=== PATIENT | female | born 1950 | race Caucasian/White ===

== ENCOUNTER 2017-03-12 15:21 | Inpatient (IN) | payer OTHER ==
[~2017-03-12] VITALS: Ht 162.6 cm; Wt 57.8 kg
[~2017-03-12 15:21] MED LIST: ACTOS30 MG PO; ADVAIR 250/501 DISK IH; ALBUTEROL17 GM IH; AMBIEN CR6.25 MG PO; AMLODIPINE BESYL5 MG PO; ASPIRIN325 MG PO; ATROVENT HFA12.9 GM IH; Ambien PO; CEFTIN500 MG PO; CILOSTAZOL50 MG PO; CLONIDINE HCL0.1 MG PO; CRESTOR10 MG PO; CRESTOR40 MG PO; CRESTOR5 MG PO; CYMBALTA20 MG PO; Cymbalta PO; ESCITALOPRAM OX10 MG PO; FERROUS SULFAT325 MG PO; Feosol PO; GABAPENTIN400 MG PO; GABAPENTIN600 MG PO; JANUMET 50/11 TABLET PO; JANUMET 50/51 TABLET PO; K-DUR10 MEQ PO; LANTUS100 UNIT/1 SQ; LASIX20 MG PO; LEVEMIR FL100 UNIT/1 SC; LEVOTHYROXINE88 MCG PO; LISINOPRIL20 MG PO; LOPRESSOR25 MG PO; LOPRESSOR50 MG PO; Levothroid,Synthroid PO; MEDROL DOSEPAK4 MG PO; METFORMIN HCL1000 MG PO; MORPHINE SULFAT15 M1 PO; MULTI-DAY VITA1 EACH PO; NICOTINE PATCH1 EAC2 TD; NOVOLOG100 UNIT/3 SQ; Norvasc PO; OXAYDO7.5 MG PO; OXYCODONE-ACET1 EACH PO; OXYCODONE-APAP1 EAC6 PO; PERCOCET 5/31 TABLET PO; PLAVIX75 MG PO; POTASSIUM CHLO10 ME3 PO; POTASSIUM-9999 MG PO; PREVACID30 MG PO; PROTONIX40 MG PO; Proventil,Ventolin H IH; SPIRIVA RESPIMAT4 GM IH; SPIRIVA1 INHALATI IH; SYMBICORT60 INHALA1 IH; SYNTHROID88 MCG PO; TICLID PO; Tylenol Regular Stre PO; VENTOLIN HFA18 GM IH; Vicodin,Lortab 5/500 PO; ZESTRIL,PRINIVI20 MG PO; Zestril,Prinivil PO
[2017-03-12] MEDS ORDERED: ASPIRIN325 MG PO (15:45)
[2017-03-12 18:16] LABS: HEMATOCRIT 37.6 % (36.0-46.0); MCH 27.3 PG (29.0-34.0); MCHC 31.9 G/DL (30.0-36.0); MCV 85.5 FL (83-99); MEAN PLAT.VOLUME 9.8 uM^3 (9.5-12.4); PLATELET COUNT 374 K/uL (156-360); RBC DIS.WIDTH-CV 17.7 % (11.8-14.6); RBC DIS.WIDTH-SD 55.3 % (39-53); WHITE BLOOD COUNT 13.1 K/uL (4.1-10.2)
[2017-03-12 18:44] LABS: ALKALINE PHOSPHATASE 54 IU/L (3-129); ANION GAP 7 MEQ/L (2-14); CHLORIDE 98 MEQ/L (99-109); GFR ESTIMATE (CALCULATED) > 59 mL/min/; GLUCOSE 193 mg/dL (70-99); POTASSIUM 3.6 MEQ/L (3.7-5.4); SAMPLE HEMOLYSIS CHECK 0; SAMPLE ICTERIC CHECK 0; SAMPLE LIPEMIA CHECK 0; SODIUM 139 MEQ/L (136-147); TOTAL BILIRUBIN 0.3 MG/DL (0.0-1.0); UREA NITROGEN (BUN) 14 mg/dL (9-23)
[2017-03-12 21:35] LABS: MAGNESIUM 1.4 mg/dl (1.3-2.7)
[2017-03-12] MEDS ORDERED: LEXAPRO20 MG PO (21:41)
[2017-03-12] MEDS ORDERED: BREO ELLIPTA I1 EACH IH (21:44)
[2017-03-12 21:53] LABS: SERUM ETHYL ALCOHOL < 10 mg/dL
[2017-03-12 22:02] LABS: ADD MIUA? YES; BILIRUBIN NEGATIVE; BLOOD NEGATIVE; COLOR YELLOW ((YELLOW)); GLUCOSE (STRIP) NEGATIVE; KETONES NEGATIVE; LEUKOCYTES NEGATIVE; NITRITE NEGATIVE; PROTEIN (STRIP) 30; SPECIFIC GRAVITY 1.009 (1.000-1.030); UROBILINOGEN 0.2 MG/DL (0.2-1.0)
[2017-03-12 22:05] VITALS: BP 174/72
[2017-03-12 22:12] LABS: BACTERIA 2+ /HPF; EPITHELIAL CELLS RARE /HPF; MUCUS TRACE /LPF; RED BLOOD CELLS 0-5 /HPF (0-5); UCUL ADDED? YES
[2017-03-12 22:40] VITALS: BP 174/72
[2017-03-12 22:46] LABS: TROP-I INTERPRETATION NEGATIVE; TROPONIN-I < 0.01 ng/mL (0.0-0.30)
[2017-03-12 23:18] LABS: POINT-OF-CARE METER ID UU14208753
[2017-03-13 01:18] LABS: TROP-I INTERPRETATION NEGATIVE; TROPONIN-I < 0.01 ng/mL (0.0-0.30)
[2017-03-13 04:34] VITALS: BP 174/83
[2017-03-13 06:25] LABS: POINT-OF-CARE METER ID UU14117124
[2017-03-13 07:06] LABS: INTER. NORMALIZED RATIO 1.1; PROTHROMBIN TIME 11.7 SEC (10.2-12.9)
[2017-03-13 07:09] LABS: PTT 27.3 SEC (25-37)
[2017-03-13 07:16] LABS: ANION GAP 8 MEQ/L (2-14); CHLORIDE 99 MEQ/L (99-109); GFR ESTIMATE (CALCULATED) > 59 mL/min/; GLUCOSE 146 mg/dL (70-99); HDL CHOLESTEROL 52 MG/DL (Desirable>=50); LDL CHOLESTEROL 65 mg/dL (Desirable<100); NON-HDL CHOLESTEROL 81 mg/dL (Desirable<160); SAMPLE HEMOLYSIS CHECK 1; SAMPLE ICTERIC CHECK 0; SAMPLE LIPEMIA CHECK 0; SODIUM 138 MEQ/L (136-147); TOTAL CHOLESTEROL 133 mg/dL (Desirable<200); TRIGLYCERIDES 81 MG/DL (Normal: <150); UREA NITROGEN (BUN) 13 mg/dL (9-23)
[2017-03-13 07:18] LABS: POTASSIUM 5.1 MEQ/L (3.7-5.4); TROP-I INTERPRETATION NEGATIVE; TROPONIN-I 0.02 ng/mL (0.0-0.30)
[2017-03-13 07:19] LABS: Estimated Average Glucose 151 mg/dL (70-123); HEMOGLOBIN A1c (GLYCOHEMOGLOB) 6.9 % HGB (Below 5.7)
[2017-03-13 07:42] VITALS: BP 132/66
[2017-03-13 08:17] LABS: BASOPHIL COUNT 0.1 K/uL (0-0.1); EOSINOPHIL (%) 0.6 % (0-5); EOSINOPHIL COUNT 0.1 K/uL (0-0.3); HEMATOCRIT 34.2 % (36.0-46.0); IMMATURE GRANULOCYTE (%) 0.3 % (0.0-0.7); INSTRUMENT ABS NEUTROPHIL CT 8.8 K/uL; LYMPHOCYTE COUNT 1.5 K/uL (1.0-2.8); MCH 26.9 PG (29.0-34.0); MCHC 31.3 G/DL (30.0-36.0); MCV 85.9 FL (83-99); MEAN PLAT.VOLUME 10.1 uM^3 (9.5-12.4); MONOCYTE (%) 8.6 % (3-12); NEUTROPHIL (%) 76.8 % (45-76); NEUTROPHIL COUNT 8.8 K/uL (1.8-6.4); PLATELET COUNT 336 K/uL (156-360); RBC DIS.WIDTH-CV 17.6 % (11.8-14.6); RBC DIS.WIDTH-SD 55.2 % (39-53); RED BLOOD COUNT 3.98 M/uL (3.80-5.20); WHITE BLOOD COUNT 11.4 K/uL (4.1-10.2)
[2017-03-13 11:20] VITALS: BP 140/87
[2017-03-13 11:37] LABS: POINT-OF-CARE METER ID UU14208753
[2017-03-13 16:08] VITALS: BP 175/77
[2017-03-13 18:37] LABS: POINT-OF-CARE METER ID UU13113675
[2017-03-13 19:08] LABS: HEMATOCRIT 36.9 % (36.0-46.0); MCH 28.6 PG (29.0-34.0); MCHC 32.5 G/DL (30.0-36.0); MCV 87.9 FL (83-99); MEAN PLAT.VOLUME 9.9 uM^3 (9.5-12.4); PLATELET COUNT 302 K/uL (156-360); RBC DIS.WIDTH-CV 17.9 % (11.8-14.6); RBC DIS.WIDTH-SD 57.5 % (39-53); WHITE BLOOD COUNT 11.5 K/uL (4.1-10.2)
[2017-03-13 20:21] VITALS: BP 169/75
[2017-03-13 21:46] LABS: POINT-OF-CARE METER ID UU14208753
[2017-03-13 23:15] VITALS: BP 143/83
[2017-03-14 04:04] VITALS: BP 146/75
[2017-03-14 05:56] LABS: BASOPHIL COUNT 0.1 K/uL (0-0.1); EOSINOPHIL (%) 0.1 % (0-5); HEMATOCRIT 32.1 % (36.0-46.0); IMMATURE GRANULOCYTE (%) 0.4 % (0.0-0.7); IMMATURE GRANULOCYTE COUNT 0.1 K/uL; INSTRUMENT ABS NEUTROPHIL CT 9.4 K/uL; MCH 27.9 PG (29.0-34.0); MCHC 32.1 G/DL (30.0-36.0); MEAN PLAT.VOLUME 10.4 uM^3 (9.5-12.4); MONOCYTE COUNT 0.7 K/uL (0-0.8); NEUTROPHIL (%) 84.5 % (45-76); NEUTROPHIL COUNT 9.4 K/uL (1.8-6.4); PLATELET COUNT 290 K/uL (156-360); RBC DIS.WIDTH-CV 17.4 % (11.8-14.6); RBC DIS.WIDTH-SD 55.5 % (39-53); RED BLOOD COUNT 3.69 M/uL (3.80-5.20); WHITE BLOOD COUNT 11.2 K/uL (4.1-10.2)
[2017-03-14 06:22] LABS: ANION GAP 7 MEQ/L (2-14); CHLORIDE 99 MEQ/L (99-109); GFR ESTIMATE (CALCULATED) > 59 mL/min/; GLUCOSE 132 mg/dL (70-99); POTASSIUM 4.3 MEQ/L (3.7-5.4); SAMPLE HEMOLYSIS CHECK 0; SAMPLE ICTERIC CHECK 0; SAMPLE LIPEMIA CHECK 0; SODIUM 137 MEQ/L (136-147); UREA NITROGEN (BUN) 11 mg/dL (9-23)
[2017-03-14 06:34] LABS: POINT-OF-CARE METER ID UU14117124
[2017-03-14 06:38] LABS: TROP-I INTERPRETATION NEGATIVE; TROPONIN-I 0.01 ng/mL (0.0-0.30)
[2017-03-14 08:43] VITALS: BP 160/72
[2017-03-14 11:38] LABS: POINT-OF-CARE METER ID UU14208753
[2017-03-14 11:53] VITALS: BP 143/66
[2017-03-14 16:10] VITALS: BP 137/63
[2017-03-14 19:28] VITALS: BP 155/65
[2017-03-14 23:00] VITALS: BP 121/58
[2017-03-15] VITALS (11 sets, daily range): BP systolic 111–167; BP diastolic 54–71
[2017-03-15 06:43] LABS: POINT-OF-CARE METER ID UU14117124
[2017-03-15 07:14] LABS: EOSINOPHIL COUNT 0.1 K/uL (0-0.3); HEMATOCRIT 26.2 % (36.0-46.0); IMMATURE GRANULOCYTE (%) 0.5 % (0.0-0.7); INSTRUMENT ABS NEUTROPHIL CT 6.4 K/uL; LYMPHOCYTE COUNT 0.9 K/uL (1.0-2.8); MCH 26.6 PG (29.0-34.0); MCHC 30.9 G/DL (30.0-36.0); MCV 85.9 FL (83-99); MEAN PLAT.VOLUME 10.4 uM^3 (9.5-12.4); MONOCYTE (%) 8.1 % (3-12); MONOCYTE COUNT 0.7 K/uL (0-0.8); NEUTROPHIL (%) 78.5 % (45-76); NEUTROPHIL COUNT 6.4 K/uL (1.8-6.4); PLATELET COUNT 258 K/uL (156-360); RBC DIS.WIDTH-CV 17.2 % (11.8-14.6); RBC DIS.WIDTH-SD 54.8 % (39-53); RED BLOOD COUNT 3.05 M/uL (3.80-5.20); WHITE BLOOD COUNT 8.2 K/uL (4.1-10.2)
[2017-03-15 07:30] LABS: ANION GAP 8 MEQ/L (2-14); CHLORIDE 96 MEQ/L (99-109); GFR ESTIMATE (CALCULATED) > 59 mL/min/; GLUCOSE 197 mg/dL (70-99); POTASSIUM 3.5 MEQ/L (3.7-5.4); SAMPLE HEMOLYSIS CHECK 0; SAMPLE ICTERIC CHECK 0; SAMPLE LIPEMIA CHECK 0; SODIUM 135 MEQ/L (136-147); UREA NITROGEN (BUN) 13 mg/dL (9-23)
[2017-03-15 13:40] LABS: ADD MIUA? YES; BILIRUBIN NEGATIVE; BLOOD NEGATIVE; COLOR YELLOW ((YELLOW)); GLUCOSE (STRIP) 50; KETONES NEGATIVE; LEUKOCYTES TRACE; NITRITE NEGATIVE; PROTEIN (STRIP) 100; SPECIFIC GRAVITY 1.017 (1.000-1.030); UROBILINOGEN 0.2 MG/DL (0.2-1.0)
[2017-03-15 14:06] LABS: BACTERIA RARE /HPF; EPITHELIAL CELLS NONE SEEN /HPF; GRANULAR CASTS 0-5 /LPF; HYALINE CASTS 0-5 /LPF; MUCUS TRACE /LPF; RED BLOOD CELLS 0-5 /HPF (0-5); UCUL ADDED? YES
[2017-03-15 21:35] LABS: POINT-OF-CARE METER ID UU14208753
[2017-03-16 04:09] VITALS: BP 113/75
[2017-03-16 06:26] LABS: POINT-OF-CARE METER ID UU14208753
[2017-03-16 06:35] LABS: BASOPHIL COUNT 0.1 K/uL (0-0.1); EOSINOPHIL COUNT 0.2 K/uL (0-0.3); HEMATOCRIT 30.4 % (36.0-46.0); IMMATURE GRANULOCYTE (%) 0.4 % (0.0-0.7); INSTRUMENT ABS NEUTROPHIL CT 6.3 K/uL; MCH 27.5 PG (29.0-34.0); MCHC 32.2 G/DL (30.0-36.0); MCV 85.4 FL (83-99); MEAN PLAT.VOLUME 10.5 uM^3 (9.5-12.4); MONOCYTE COUNT 0.8 K/uL (0-0.8); NEUTROPHIL (%) 75.6 % (45-76); NEUTROPHIL COUNT 6.3 K/uL (1.8-6.4); PLATELET COUNT 266 K/uL (156-360); RBC DIS.WIDTH-SD 50.4 % (39-53); RED BLOOD COUNT 3.56 M/uL (3.80-5.20); WHITE BLOOD COUNT 8.4 K/uL (4.1-10.2)
[2017-03-16 07:04] LABS: ALKALINE PHOSPHATASE 66 IU/L (3-129); ANION GAP 7 MEQ/L (2-14); CHLORIDE 99 MEQ/L (99-109); GFR ESTIMATE (CALCULATED) > 59 mL/min/; GLUCOSE 170 mg/dL (70-99); POTASSIUM 3.5 MEQ/L (3.7-5.4); SAMPLE HEMOLYSIS CHECK 0; SAMPLE ICTERIC CHECK 0; SAMPLE LIPEMIA CHECK 0; SODIUM 140 MEQ/L (136-147); UREA NITROGEN (BUN) 12 mg/dL (9-23)
[2017-03-16 07:05] LABS: TOTAL BILIRUBIN 0.5 MG/DL (0.0-1.0)
[2017-03-16] MEDS ORDERED: TYLENOL REGULA325 MG PO (07:11)
[2017-03-16] MEDS ORDERED: LOVENOX40 MG/0.4 SC (07:11)
[2017-03-16] MEDS ORDERED: THERAGRAN1 TABLET PO (07:11)
[2017-03-16] MEDS ORDERED: PRAVASTATIN SOD80 MG PO (07:11)
[2017-03-16] MEDS ORDERED: DOCUSATE SODIU100 MG PO (07:11)
[2017-03-16] MEDS ORDERED: CEFTIN500 MG PO (07:11)
[2017-03-16 08:21] VITALS: BP 186/81
[2017-03-16 11:53] LABS: POINT-OF-CARE METER ID UU14117124
[2017-03-16 12:00] VITALS: BP 137/63
== END 2017-03-16 15:42 | DRG 481 ==
LOC: EME 15:21 → EDOF 20:33 → 3EAST 20:33 → ENRESERV 20:38 → 3EAST 22:03
PROVIDERS: Emergency Medicine; Hospitalist; Internal Medicine Cardiovascular Disease; Nurse Practitioner Adult Health; Orthopaedic Surgery; Physician Assistant; Physician Assistant Medical
PROC: 0QS736Z Reposition Left Upper Femur with Intramedullary Internal Fixation Device, Percutaneous Approach (ICD-10-PCS; principal; 2017-03-13)
PROC: 30233N1 Transfusion of Nonautologous Red Blood Cells into Peripheral Vein, Percutaneous Approach (ICD-10-PCS; 2017-03-15)
DX: S72.142A Displaced intertrochanteric fracture of left femur, initial encounter for closed fracture (principal); J44.0 Chronic obstructive pulmonary disease with (acute) lower respiratory infection; E11.40 Type 2 diabetes mellitus with diabetic neuropathy, unspecified; E11.319 Type 2 diabetes mellitus with unspecified diabetic retinopathy without macular edema; E11.51 Type 2 diabetes mellitus with diabetic peripheral angiopathy without gangrene; I11.0 Hypertensive heart disease with heart failure; R64 Cachexia; N39.0 Urinary tract infection, site not specified; W18.30XA Fall on same level, unspecified, initial encounter; W22.8XXA Striking against or struck by other objects, initial encounter; Y92.009 Unspecified place in unspecified non-institutional (private) residence as the place of occurrence of the external cause; G35 Multiple sclerosis; I50.9 Heart failure, unspecified; D64.9 Anemia, unspecified; E11.65 Type 2 diabetes mellitus with hyperglycemia; E03.9 Hypothyroidism, unspecified; K21.9 Gastro-esophageal reflux disease without esophagitis; F17.210 Nicotine dependence, cigarettes, uncomplicated; F41.9 Anxiety disorder, unspecified; G89.29 Other chronic pain; E78.5 Hyperlipidemia, unspecified; E78.00 Pure hypercholesterolemia, unspecified; B96.1 Klebsiella pneumoniae [K. pneumoniae] as the cause of diseases classified elsewhere; H54.8 Legal blindness, as defined in USA; Z79.4 Long term (current) use of insulin; Z68.1 Body mass index [BMI] 19.9 or less, adult; Z86.73 Personal history of transient ischemic attack (TIA), and cerebral infarction without residual deficits; Z86.010 Personal history of colon polyps
CPT/HCPCS: 70450; 71010; 73501; 73502; 73552; 76000; 80048; 80053; 80061; 81003; 82306; 82948; 83036; 83735; 84484; 85014; 85018; 85025; 85027; 85610; 85730; 86850; 86900; 86901; 86920; 87077; 87086; 87186; 87493; 93005; 93306; 94640; 94640 76; 94799; 97530 GP; 99202; 99281; 99285; C1713; G0480; J0690; J0696; J1170; J1650; J1815; J2270; J2405; J3010; J7030; J7040; J7050; P9016

== ENCOUNTER 2017-05-14 09:49 | Emergency (ER) | payer OTHER ==
[~2017-05-14] VITALS: Ht 162.6 cm; Wt 49.2 kg
[~2017-05-14 09:49] MED LIST changes: +BREO ELLIPTA I1 EACH IH; +DOCUSATE SODIU100 MG PO; +LEXAPRO20 MG PO; +LOVENOX40 MG/0.4 SC; +PRAVASTATIN SOD80 MG PO; +THERAGRAN1 TABLET PO; +TYLENOL REGULA325 MG PO
[2017-05-14 11:10] LABS: HEMATOCRIT 34.5 % (36.0-46.0); MCH 27.9 PG (29.0-34.0); MCHC 31.6 G/DL (30.0-36.0); MCV 88.2 FL (83-99); MEAN PLAT.VOLUME 10.1 uM^3 (9.5-12.4); PLATELET COUNT 336 K/uL (156-360); RBC DIS.WIDTH-CV 14.5 % (11.8-14.6); RBC DIS.WIDTH-SD 46.3 % (39-53); RED BLOOD COUNT 3.91 M/uL (3.80-5.20); WHITE BLOOD COUNT 9.3 K/uL (4.1-10.2)
[2017-05-14 11:18] LABS: CHLORIDE 101 mEq/L (99-109); POTASSIUM 4.2 mEq/L (3.7-5.4); SODIUM 140 mEq/L (136-147)
[2017-05-14 11:19] LABS: PROTHROMBIN TIME 11.6 SEC (10.2-12.9)
[2017-05-14 11:20] LABS: GLUCOSE 153 mg/dL (70-99)
[2017-05-14 11:21] LABS: ANION GAP 13 MEQ/L (2-14)
[2017-05-14 11:22] LABS: PTT 31.2 SEC (25-37)
[2017-05-14 11:24] LABS: GFR ESTIMATE (CALCULATED) 53 mL/min/
[2017-05-14 11:25] LABS: UREA NITROGEN (BUN) 25 mg/dL (9-23)
[2017-05-14 14:17] VITALS: BP 153/75
== END 2017-05-14 14:26 | disposition home or self-care (01) ==
LOC: EME 09:49
DX: K62.5 Hemorrhage of anus and rectum (principal); D64.9 Anemia, unspecified; K83.8 Other specified diseases of biliary tract; K21.9 Gastro-esophageal reflux disease without esophagitis; J44.9 Chronic obstructive pulmonary disease, unspecified; I10 Essential (primary) hypertension; E11.40 Type 2 diabetes mellitus with diabetic neuropathy, unspecified; E03.9 Hypothyroidism, unspecified; F41.9 Anxiety disorder, unspecified; F32.9 Major depressive disorder, single episode, unspecified; Z86.73 Personal history of transient ischemic attack (TIA), and cerebral infarction without residual deficits; Z79.4 Long term (current) use of insulin; F17.200 Nicotine dependence, unspecified, uncomplicated
CPT/HCPCS: 74177; 80048; 81003; 85027; 85610; 85730; 86850; 86900; 86901; 99281; 99284; J7030

== ENCOUNTER 2017-12-02 20:29 | Inpatient (IN) | payer OTHER ==
[~2017-12-02] VITALS: Ht 162.6 cm; Wt 43.3 kg
[~2017-12-02 20:29] MED LIST changes: +CLOPIDOGREL75 MG PO; +ENDOCET 7.5-321 EACH PO; +FUROSEMIDE20 MG PO; +LEXAPRO10 MG PO; +METFORMIN HCL500 MG PO
[2017-12-02 21:05] LABS: BASOPHIL (%) 0.4 % (0-1); BASOPHIL COUNT 0.1 K/uL (0-0.1); EOSINOPHIL (%) 0.9 % (0-5); EOSINOPHIL COUNT 0.1 K/uL (0-0.3); HEMATOCRIT 33.1 % (36.0-46.0); HEMOGLOBIN 11.1 G/DL (11.9-15.5); IMMATURE GRANULOCYTE (%) 1.1 % (0.0-0.7); LYMPHOCYTE COUNT 1.4 K/uL (1.0-2.8); MCH 26.1 PG (29.0-34.0); MCHC 33.5 G/DL (30.0-36.0); MCV 77.9 FL (83-99); MONOCYTE (%) 8.7 % (3-12); MONOCYTE COUNT 1.3 K/uL (0-0.8); NEUTROPHIL (%) 78.9 % (45-76); NEUTROPHIL COUNT 11.3 K/uL (1.8-6.4); PLATELET COUNT 503 K/uL (156-360); RBC DIS.WIDTH-CV 15.5 % (11.8-14.6); RBC DIS.WIDTH-SD 43.4 % (39-53); RED BLOOD COUNT 4.25 M/uL (3.80-5.20); WHITE BLOOD COUNT 14.3 K/uL (4.1-10.2)
[2017-12-02 21:10] LABS: INTER. NORMALIZED RATIO 1.1
[2017-12-02 21:13] LABS: ALBUMIN 3.5 g/dL (3.2-4.8); CHLORIDE 93 mEq/L (99-109); POTASSIUM 3.7 mEq/L (3.7-5.4); PTT 29.3 SEC (25-37); SODIUM 135 mEq/L (136-147)
[2017-12-02 21:14] LABS: MAGNESIUM 1.1 mg/dL (1.3-2.7)
[2017-12-02 21:17] LABS: TOTAL BILIRUBIN 0.3 mg/dL (0.0-1.0)
[2017-12-02 21:19] LABS: ALKALINE PHOSPHATASE 105 IU/L (3-129); CREATININE 2.3 mg/dL (0.6-1.3); GFR ESTIMATE (CALCULATED) 23 mL/min/
[2017-12-02 21:20] LABS: UREA NITROGEN (BUN) 36 mg/dL (9-23)
[2017-12-02 21:21] LABS: AST (GOT) 29 IU/L (2-34)
[2017-12-02 21:22] LABS: ALT (GPT) 17 IU/L (3-49)
[2017-12-02 21:24] LABS: TROP-I INTERPRETATION NEGATIVE; TROPONIN-I < 0.01 ng/mL (0.0-0.30)
[2017-12-02 21:40] LABS: GLUCOSE 29 mg/dL (70-99)
[2017-12-02] MEDS ORDERED: GABAPENTIN300 MG PO (22:23)
[2017-12-02] MEDS ORDERED: ROSUVASTATIN CA10 MG PO (22:23)
[2017-12-02] MEDS ORDERED: OXYCODONE-APAP1 EAC6 PO (22:24)
[2017-12-02] MEDS ORDERED: SPIRIVA1 INHALATI IH (22:24)
[2017-12-02] MEDS ORDERED: ESCITALOPRAM OX10 MG PO (22:24)
[2017-12-02] MEDS ORDERED: METFORMIN HCL1000 MG PO (22:25)
[2017-12-02] MEDS ORDERED: PANTOPRAZOLE SO40 MG PO (22:25)
[2017-12-03 05:39] VITALS: BP 159/70
[2017-12-03 07:25] VITALS: BP 125/59
[2017-12-03 10:07] VITALS: BP 123/57
[2017-12-03 11:04] LABS: BASOPHIL (%) 0.3 % (0-1); EOSINOPHIL (%) 1.3 % (0-5); EOSINOPHIL COUNT 0.1 K/uL (0-0.3); HEMOGLOBIN 9.9 G/DL (11.9-15.5); IMMATURE GRANULOCYTE (%) 0.4 % (0.0-0.7); LYMPHOCYTE (%) 12.8 % (15-42); LYMPHOCYTE COUNT 1.3 K/uL (1.0-2.8); MCH 25.4 PG (29.0-34.0); MCHC 31.9 G/DL (30.0-36.0); MCV 79.5 FL (83-99); MONOCYTE (%) 7.8 % (3-12); MONOCYTE COUNT 0.8 K/uL (0-0.8); NEUTROPHIL (%) 77.4 % (45-76); NEUTROPHIL COUNT 7.6 K/uL (1.8-6.4); PLATELET COUNT 440 K/uL (156-360); RBC DIS.WIDTH-CV 15.8 % (11.8-14.6); RBC DIS.WIDTH-SD 45.5 % (39-53); WHITE BLOOD COUNT 9.9 K/uL (4.1-10.2)
[2017-12-03 11:31] LABS: CHLORIDE 95 MEQ/L (99-109); CREATININE 2.1 MG/DL (0.6-1.3); GFR ESTIMATE (CALCULATED) 25 mL/min/; POTASSIUM 4.4 MEQ/L (3.7-5.4); SODIUM 135 MEQ/L (136-147); UREA NITROGEN (BUN) 31 mg/dL (9-23)
[2017-12-03 11:32] LABS: GLUCOSE 85 mg/dL (70-99)
[2017-12-03 15:35] VITALS: BP 135/63
[2017-12-03 20:48] VITALS: BP 146/63
[2017-12-03 21:50] VITALS: BP 171/78
[2017-12-04 02:03] VITALS: BP 143/67
[2017-12-04 05:27] VITALS: BP 145/70
[2017-12-04 07:20] VITALS: BP 148/73
[2017-12-04 10:41] LABS: CHLORIDE 99 MEQ/L (99-109); CREATININE 1.7 MG/DL (0.6-1.3); GFR ESTIMATE (CALCULATED) 32 mL/min/; POTASSIUM 4.2 MEQ/L (3.7-5.4); SODIUM 135 MEQ/L (136-147); UREA NITROGEN (BUN) 21 mg/dL (9-23)
[2017-12-04 10:42] LABS: GLUCOSE 252 mg/dL (70-99)
[2017-12-04 16:01] VITALS: BP 138/60
[2017-12-04 20:05] VITALS: BP 165/73
[2017-12-05 00:21] VITALS: BP 138/62
[2017-12-05 04:41] VITALS: BP 160/70
[2017-12-05 06:30] LABS: BASOPHIL (%) 0.8 % (0-1); BASOPHIL COUNT 0.1 K/uL (0-0.1); EOSINOPHIL (%) 4.8 % (0-5); EOSINOPHIL COUNT 0.3 K/uL (0-0.3); HEMATOCRIT 30.3 % (36.0-46.0); HEMOGLOBIN 9.7 G/DL (11.9-15.5); IMMATURE GRANULOCYTE (%) 0.3 % (0.0-0.7); LYMPHOCYTE (%) 38.3 % (15-42); LYMPHOCYTE COUNT 2.4 K/uL (1.0-2.8); MCH 25.3 PG (29.0-34.0); MCV 78.9 FL (83-99); MONOCYTE (%) 12.4 % (3-12); MONOCYTE COUNT 0.8 K/uL (0-0.8); NEUTROPHIL (%) 43.4 % (45-76); NEUTROPHIL COUNT 2.7 K/uL (1.8-6.4); PLATELET COUNT 477 K/uL (156-360); RBC DIS.WIDTH-CV 15.8 % (11.8-14.6); RBC DIS.WIDTH-SD 45.5 % (39-53); RED BLOOD COUNT 3.84 M/uL (3.80-5.20); WHITE BLOOD COUNT 6.3 K/uL (4.1-10.2)
[2017-12-05 07:00] VITALS: BP 128/58
[2017-12-05 08:00] LABS: CHLORIDE 102 MEQ/L (99-109); CREATININE 1.3 MG/DL (0.6-1.3); FERRITIN 49 NG/ML (10-291); GFR ESTIMATE (CALCULATED) 44 mL/min/; IRON 26 MCG/DL (35-150); MAGNESIUM 1.4 mg/dl (1.3-2.7); POTASSIUM 3.6 MEQ/L (3.7-5.4); SODIUM 140 MEQ/L (136-147); UREA NITROGEN (BUN) 14 mg/dL (9-23)
[2017-12-05 08:05] LABS: GLUCOSE 30 mg/dL (70-99)
[2017-12-05 10:20] LABS: TRANSFERRIN (TIBC) 217.2 mg/dL (215-380); TRANSFERRIN SATUR. 12 % (20-55)
[2017-12-05] MEDS ORDERED: PROVENTIL HFA6.7 GM IH (11:26)
[2017-12-05] MEDS ORDERED: AUGMENTIN875 MG PO (11:26)
[2017-12-05 16:03] VITALS: BP 108/70
[2017-12-05] MEDS ORDERED: FEOSOL325 MG PO (16:08)
== END 2017-12-05 17:46 | disposition home health service (06) | DRG 682 ==
LOC: EME → EDBD 20:29 → EDOF 23:00 → 5EAST 23:00 → ENRESERV 23:07 → 5EAST 12-03 00:27
PROVIDERS: Emergency Medicine; Hospitalist; Internal Medicine; Physician Assistant
DX: N17.9 Acute kidney failure, unspecified (principal); J44.0 Chronic obstructive pulmonary disease with (acute) lower respiratory infection; J15.9 Unspecified bacterial pneumonia; E11.649 Type 2 diabetes mellitus with hypoglycemia without coma; E87.1 Hypo-osmolality and hyponatremia; E86.0 Dehydration; E83.42 Hypomagnesemia; J44.1 Chronic obstructive pulmonary disease with (acute) exacerbation; I11.0 Hypertensive heart disease with heart failure; I50.9 Heart failure, unspecified; F32.9 Major depressive disorder, single episode, unspecified; K21.9 Gastro-esophageal reflux disease without esophagitis; E11.40 Type 2 diabetes mellitus with diabetic neuropathy, unspecified; F41.9 Anxiety disorder, unspecified; E78.5 Hyperlipidemia, unspecified; G35 Multiple sclerosis; E03.9 Hypothyroidism, unspecified; H54.8 Legal blindness, as defined in USA; G89.4 Chronic pain syndrome; E11.51 Type 2 diabetes mellitus with diabetic peripheral angiopathy without gangrene; F17.210 Nicotine dependence, cigarettes, uncomplicated; D50.9 Iron deficiency anemia, unspecified; Z86.73 Personal history of transient ischemic attack (TIA), and cerebral infarction without residual deficits; Z79.4 Long term (current) use of insulin; Z79.02 Long term (current) use of antithrombotics/antiplatelets
CPT/HCPCS: 71045; 80048; 80053; 81003; 82607; 82728; 82746; 82948; 83540; 83605; 83735; 84466; 84484; 85025; 85610; 85730; 87040; 87070; 87205; 87449; 93005; 94640; 94640 76; 99202; 99281; 99285; J0295; J0456; J0696; J1644; J1815; J3475; J7030; J7040; J7050